=== PATIENT | female | born 1965 | race African-American/Black ===

== ENCOUNTER 2018-08-12 10:50 | Observation (INO) ==
[2018-08-12] MEDS ORDERED: ENOXAPARIN 100 MG/ML SYRINGE SUBCUT STA (11:14)
[2018-08-12] MEDS ORDERED: NITROGLYCERIN SL 0.4 MG TABLET SL PRN (11:14)
[2018-08-12] MEDS ORDERED: METOPROLOL TARTRATE 5 MG/5 ML VIAL IV STA (11:14)
[2018-08-12] MEDS ORDERED: ASPIRIN 325 MG TABLET PO STA (11:14)
[2018-08-12] MEDS ORDERED: cloNIDine 0.1 MG TABLET PO STA (11:18)
[2018-08-12 11:51] LABS: Basophils % 0.4 % (0.0-0.8); Eosinophils % 0.4 % (0.00-10.9); Hematocrit 35.2 VOL% (35.7-47.0); Hemoglobin 10.7 GM/DL (12.0-16.0); Immature Granulocytes % 0.3 %; Immature Granulocytes Absolute 0.02 #; Lymphocytes # 1.1 10*3/uL (1.4-4.0); Lymphocytes % 14.4 % (21.3-54.2); Mean Corpuscular HGB Conc 30.4 GM/DL (32-36); Mean Corpuscular Hemoglobin 24 PG (27-34); Mean Corpuscular Volume 78.2 FL (87-102); Monocytes # 0.7 10*3/uL (0.11-0.8); Monocytes % 8.9 % (1.7-12.7); Neutrophils # 5.6 10*3/uL (1.4-7.4); Neutrophils % 75.6 % (38.7-73.9); Platelet Count 304 T/CUMM (130-400); Red Cell Distribution Width 20.1 % (9.3-17.3); White Blood Count 7.5 T/CUMM (4-12)
[2018-08-12 12:22] LABS: Albumin 3.7 G/DL (3.4-5.0); Bilirubin,Total 0.7 MG/DL (0.2-1.0); Calcium 9.4 MG/DL (8.5-10.1); Osmolality,Calculated 275.5 MOS/KG (273-304); Potassium 3.8 MMOL/L (3.5-5.1); Total Protein 7.5 G/DL (6.4-8.3)
[2018-08-12] MEDS ORDERED: LABETALOL 20 MG/4 ML SYRINGE IV STA (13:32)
[2018-08-12] MEDS ORDERED: ACETAMINOPHEN 325 MG TABLET PO PRN (14:55)
[2018-08-12] MEDS ORDERED: ONDANSETRON 4 MG/2 ML VIAL IV PRN (14:55)
[2018-08-12] MEDS ORDERED: NICOTINE 21 MG/24 HR PATCH TRANSDERM PRN (14:55)
[2018-08-12] MEDS ORDERED: ALBUTEROL 2.5 MG/3 ML NEB RESP TX PRN (14:55)
[2018-08-12] MEDS ORDERED: hydrALAZINE 20 MG/1 ML VIAL IV PRN (15:45)
[2018-08-12] MEDS ORDERED: diphenhydrAMINE CAP 25 MG CAPSULE PO PRN (18:28)
[2018-08-12] MEDS ORDERED: diphenhydrAMINE CAP 25 MG CAPSULE ONE (18:34)
[2018-08-13 05:51] LABS: Basophils % 0.4 % (0.0-0.8); Eosinophils # 0.1 10*3/uL (0.0-0.87); Eosinophils % 1.6 % (0.00-10.9); Hematocrit 30.4 VOL% (35.7-47.0); Hemoglobin 9.1 GM/DL (12.0-16.0); Immature Granulocytes % 0.4 %; Immature Granulocytes Absolute 0.02 #; Lymphocytes # 1.8 10*3/uL (1.4-4.0); Lymphocytes % 37.6 % (21.3-54.2); Mean Corpuscular HGB Conc 29.9 GM/DL (32-36); Mean Corpuscular Hemoglobin 24 PG (27-34); Mean Corpuscular Volume 79.2 FL (87-102); Mean Platelet Volume 9.1 FL (9.6-12.0); Monocytes # 0.6 10*3/uL (0.11-0.8); Monocytes % 11.2 % (1.7-12.7); Neutrophils # 2.4 10*3/uL (1.4-7.4); Neutrophils % 48.8 % (38.7-73.9); Platelet Count 270 T/CUMM (130-400); Red Blood Count 3.84 MC/CUMM (3.8-5.5); White Blood Count 4.9 T/CUMM (4-12)
[2018-08-13 06:21] LABS: Calcium 8.5 MG/DL (8.5-10.1); Osmolality,Calculated 278.3 MOS/KG (273-304); Potassium 3.3 MMOL/L (3.5-5.1); Thyroid Stimulating Hormone 2.29 uIU/ml (0.358-3.74)
[2018-08-13] MEDS ORDERED: POTASSIUM CHLORIDE 20 MEQ TABLET PO ONE (08:03)
[2018-08-13 08:21] LABS: Apearance,Urine CLOUDY (Clear); Bilirubin,Urine Negative (Negative); Blood, Urine Negative (Negative); Glucose,Urine (UA) Negative (Negative); Ketones,Urine 20 mg/dL (Negative); Mucus,Urine Many /LPF (Occasional); Nitrite,Urine Negative (Negative); Protein,Urine 30 MG/DL; RBC,Urine 6 /HPF (0-4); Squamous Epithelial Cell,Urine Many /HPF (0-10); Urine Color Amber (Yellow); Urine Specific Gravity 1.025 (1.001-1.035); WBC,Urine 28 /HPF (0-6)
[2018-08-13] MEDS ORDERED: amLODIPine 10 MG TABLET PO SCH (09:00)
[2018-08-13] MEDS ORDERED: hydroCHLOROthiazide 12.5 MG CAPSULE PO SCH (09:00)
[2018-08-13 12:03] VITALS: BP 110/71
[2018-08-13] MEDS ORDERED: HYDROmorphone 2 MG/1 ML VIAL IV PRN (16:28)
[2018-08-14] MEDS ORDERED: ASPIRIN EC 81 MG TABLET PO SCH (09:00)
== END 2018-08-13 18:48 | disposition home or self-care (01) ==
LOC: N.ED 10:50 → N.EDINP 10:50 → N.TELEN 15:42
PROVIDERS: ADMIT Internal Medicine; ATTEND Internal Medicine

== ENCOUNTER 2019-07-22 09:42 | Inpatient (IN) ==
[2019-07-22] MEDS ORDERED: ACETAMINOPHEN 325 MG TABLET PO ONE (10:02)
[2019-07-22] MEDS ORDERED: LABETALOL 20 MG/4 ML SYRINGE IV STA ×2 (10:03→10:28)
[2019-07-22] MEDS ORDERED: cloNIDine 0.1 MG TABLET PO STA (10:28)
[2019-07-22 10:33] LABS: Basophils % 0.6 % (0.0-0.8); Eosinophils # 0.3 10*3/uL (0.0-0.87); Eosinophils % 5.8 % (0.00-10.9); Hematocrit 46.1 VOL% (35.7-47.0); Hemoglobin 15.2 GM/DL (12.0-16.0); Immature Granulocytes % 0.4 %; Immature Granulocytes Absolute 0.02 #; Lymphocytes % 42.4 % (21.3-54.2); Mean Corpuscular Volume 91.8 FL (87-102); Mean Platelet Volume 9.6 FL (9.6-12.0); Monocytes % 7.1 % (1.7-12.7); Neutrophils % 43.7 % (38.7-73.9); Platelet Count 212 T/CUMM (130-400); Red Blood Count 5.02 MC/CUMM (3.8-5.5); Red Cell Distribution Width 16.9 % (9.3-17.3); White Blood Count 4.7 T/CUMM (4-12)
[2019-07-22 10:43] LABS: INR 1.1; PT Patient Result 11.5 SECS (9.6-12.2)
[2019-07-22] MEDS ORDERED: ONDANSETRON 4 MG/2 ML VIAL ONE (10:48)
[2019-07-22] MEDS ORDERED: ONDANSETRON 4 MG/2 ML VIAL IV ONE (10:48)
[2019-07-22 10:58] LABS: Alanine Aminotransferase 37 U/L (13-56); Albumin 4.2 G/DL (3.4-5.0); Alkaline Phosphatase 81 U/L (45-117); Aspartate Amino Transferase 36 U/L (0-37); Blood Urea Nitrogen 18 MG/DL (7-18); Calcium 9.2 MG/DL (8.5-10.1); Estimated Glom Filtration Rate 72 ML/MIN; Glucose 89 MG/DL (74-106); Osmolality,Calculated 281.3 MOS/KG (273-304); Total Protein 8.2 G/DL (6.4-8.3); Troponin I < 0.015 NG/ML (0.00-0.045)
[2019-07-22] MEDS ORDERED: niCARdipine INJ 25 MG in SODIUM CHLORIDE 0.9% 240 ML IV PRN (11:30)
[2019-07-22] MEDS ORDERED: niCARdipine 25 MG/10 ML VIAL IV ONE (11:40)
[2019-07-22 11:50] LABS: Barbiturates Screen,Urine Negative (Negative); Benzodiazepines Screen,Urine Negative (Negative); Cannabinoid Screen,Urine Positive (Negative); Opiate Screen,Urine Negative (Negative); Phencyclidine Screen,Urine Negative (Negative)
[2019-07-22] MEDS ORDERED: OSELTAMIVIR 75 MG CAPSULE PO ONE (12:05)
[2019-07-22] MEDS ORDERED: ONDANSETRON 4 MG/2 ML VIAL IV PRN (13:16)
[2019-07-22] MEDS ORDERED: DOCUSATE SODIUM 100 MG CAPSULE PO PRN (13:16)
[2019-07-22] MEDS ORDERED: NICOTINE 21 MG/24 HR PATCH TRANSDERM PRN (13:16)
[2019-07-22] MEDS ORDERED: ACETAMINOPHEN 325 MG TABLET PO PRN (13:21)
[2019-07-22] MEDS ORDERED: ENOXAPARIN 40 MG/0.4 ML SYRINGE SUBCUT SCH (13:30)
[2019-07-22] MEDS ORDERED: ALBUTEROL/IPRATROPIUM 3 ML NEB RESP TX PRN (13:31)
[2019-07-22 13:45] LABS: Thyroid Stimulating Hormone 1.58 uIU/ml (0.358-3.74)
[2019-07-22] MEDS ORDERED: cefTRIAXone 1,000 MG in SYRINGE 1 EACH IV SCH (15:00)
[2019-07-22 15:22] VITALS: BP 138/92
[2019-07-22] MEDS: oxyCODONE/ACETAMINOPHEN 5-325 MG TABLET PO PRN ×2 (16:23→23:50)
[2019-07-22] MEDS: cloNIDine 0.1 MG TABLET PO PRN (16:23)
[2019-07-22] MEDS: lisinopriL 10 MG TABLET PO SCH (16:24)
[2019-07-22] MEDS: SODIUM CHLORIDE 0.9% 1,000 ML IV SCH (16:33)
[2019-07-22] MEDS: OSELTAMIVIR 75 MG CAPSULE PO SCH (20:56)
[2019-07-23] MEDS: SODIUM CHLORIDE 0.9% 1,000 ML IV SCH ×2 (00:18→02:56)
[2019-07-23 04:59] LABS: Basophils % 0.8 % (0.0-0.8); Eosinophils # 0.2 10*3/uL (0.0-0.87); Eosinophils % 4.3 % (0.00-10.9); Hematocrit 38.4 VOL% (35.7-47.0); Hemoglobin 12.5 GM/DL (12.0-16.0); Immature Granulocytes % 0.3 %; Immature Granulocytes Absolute 0.01 #; Lymphocytes # 1.9 10*3/uL (1.4-4.0); Lymphocytes % 50.1 % (21.3-54.2); Mean Corpuscular HGB Conc 32.6 GM/DL (32-36); Mean Corpuscular Volume 93.7 FL (87-102); Mean Platelet Volume 9.4 FL (9.6-12.0); Monocytes % 11.3 % (1.7-12.7); Neutrophils % 33.2 % (38.7-73.9); Platelet Count 172 T/CUMM (130-400); Red Cell Distribution Width 16.8 % (9.3-17.3); White Blood Count 3.7 T/CUMM (4-12)
[2019-07-23 05:19] LABS: Calcium 8.3 MG/DL (8.5-10.1); Osmolality,Calculated 281.3 MOS/KG (273-304)
[2019-07-23 05:28] LABS: Eosinophils 4 % (0-10); Lymphocytes 46 % (20-55); Metamyelocytes 1 %; Platelet Estimate Normal; Segmented Neutrophils 37 % (50-85); Total Cells Counted 100
[2019-07-23] MEDS: cloNIDine 0.1 MG TABLET PO PRN (08:07)
[2019-07-23] MEDS: lisinopriL 10 MG TABLET PO SCH (08:08)
[2019-07-23] MEDS: OSELTAMIVIR 75 MG CAPSULE PO SCH (08:08)
[2019-07-23] MEDS ORDERED: PANTOPRAZOLE 40 MG TABLET PO SCH (09:00)
[2019-07-23] MEDS: oxyCODONE/ACETAMINOPHEN 5-325 MG TABLET PO PRN (09:33)
[2019-07-23] MEDS ORDERED: amLODIPine 5 MG TABLET PO SCH (15:00)
== END 2019-07-23 11:05 | disposition home or self-care (01) | DRG 305 ==
LOC: N.ED 09:42 → N.EDINP 13:14 → N.2E 13:48 → N.TELEN 13:58 → N.ICU 15:04
PROVIDERS: ADMIT Internal Medicine; ATTEND Internal Medicine